=== PATIENT | male | born 1980 | race Caucasian/White ===

== ENCOUNTER 2016-09-24 09:56 | Emergency (ER) | payer BC ==
[~2016-09-24] VITALS: Ht 182.9 cm; Wt 46.8 kg
[~2016-09-24 09:56] MED LIST: BACT800T5 PO; ROBA750T3 PO
[2016-09-24 10:07] VITALS: BP 144/96; PULSE 71; RESP 16; TEMP 97.6; O2SAT 98
[2016-09-24] MEDS ORDERED: ROBA750T PO (11:11)
[2016-09-24] MEDS ORDERED: ZOFR4TAB3 SL (11:11)
[2016-09-24] MEDS ORDERED: IBUP800T23 PO (11:11)
--- NOTE | 2016-09-24 11:35 | PD ---
HPI Chief Complaint: Musculoskeletal Complaint Time Seen by Provider: 11:00 Travel History International Travel<30 days: No Contact w/Intl Traveler<30days: No Traveled to known affect area: No History of Present Illness HPI Patient is a 36-year-old male presenting with right mid back pain. Approximately 2 hours prior to arrival he slipped and fell in the shower. He states he caught himself and did not fall onto the back. He states that it was a twisting motion and he believes he "wrenched" his back. The pain does not radiate. It is worse with movement and touch. He denies any chest pain, shortness of breath, weakness or paresthesias. No bowel or bladder dysfunction. No history of spinal surgeries or traumas. No attempts at palliation. He denies hitting his head and loss of consciousness. Endorses tobacco and marijuana use. Denies ethanol and other illicit drug use. PFSH Past Medical History Medical History: Denies Significant Hx Immunizations Current: Yes Influenza Vaccination: No Past Surgical History Surgical History: No Previous Surgery Social History Alcohol Use: No Tobacco Use: Yes (1PPD) Substance Use: No Allergies-Medications (Allergen,Severity, Reaction): Coded Allergies: Nonsteroidal Anti-Inflammatory Agts (Verified Adverse Reaction, Severe, VOMITING, 09/24/16) Reported Meds & Prescriptions Reported Meds & Active Scripts Active Zofran Odt (Ondansetron Odt) 4 Mg Tab 4 Mg SL Q8HR PRN Robaxin (Methocarbamol) 750 Mg Tab 750 Mg PO QID PRN 2 tabs QID for 2 days, then 1 tab QID thereafter Ibuprofen 800 Mg Tab 800 Mg PO Q8H Review of Systems Except as stated in HPI: all other systems reviewed are Neg Physical Exam Narrative GENERAL: Well-developed and well-nourished adult male in no acute distress. SKIN: Warm and dry. Good turgor without tenting. HEAD: Normocephalic and atraumatic. EYES: PERRL bilaterally, 5mm. EOMI bilaterally. No injection or icterus present. No proptosis. Lids without edema or erythema. ENT: Buccal mucosa pink and moist. Oropharynx free of erythema, tonsillar hypertrophy, masses, swelling, asymmetry and exudates. Uvula midline and airway patent. NECK: Supple, no midline tenderness, crepitus or step-offs. Trachea midline, no JVD. No cervical or facial lymphadenopathy. CARDIOVASCULAR: Regular rate and rhythm without murmurs, rubs, clicks or gallops. Radial and posterior tibial pulses 2+ bilaterally. No pedal edema. RESPIRATORY: Clear to auscultation bilaterally with symmetrical rise and fall, no distress or use of accessory muscles. GASTROINTESTINAL: Non-tender, non-distended. Normal bowel sounds all 4 quadrants. No masses or organomegaly present. MUSCULOSKELETAL: Patient some tenderness to palpation of the thoracic paraspinous musculature on the right. No thoracic or lumbar midline tenderness. No crepitus or step-offs. No edema or discoloration of the back. No gait disturbances. Patient sitting on the side of the bed he drops his phone off the opposite side. I observed him twisting towards his left, extending the back and he reached down off the floor and roll picker the phone without any apparent difficulty. Patient freely moving all four extremities spontaneously. Extremities without clubbing, cyanosis, or edema. No obvious deformities. NEUROLOGIC: CN II-XII grossly intact. Awake and alert. Sensation intact T5-L3 bilaterally. Strength 5/5 in hip flexion, hip extension, knee flexion, knee extension, plantar flexion, dorsiflexion, and great toe flexion and extension bilaterally. Bilateral patellar and Achilles DTRs 2+. Downgoing Babinskis bilaterally. Normal speech. PSYCHIATRIC: Appropriate mood and affect; insight and judgment normal. Data Data Last Documented VS Vital Signs Date Time Temp Pulse Resp B/P Pulse Ox O2 Delivery O2 Flow Rate FiO2 09/24/16 10:07 97.6 71 16 144/96 98 MDM Medical Decision Making Medical Screen Exam Complete: Yes Emergency Medical Condition: Yes Differential Diagnosis Thoracic strain versus spasm versus thoracic vertebral injury highly unlikely Narrative Course Patient is a 36-year-old male with history and physical suggestive of right thoracic paraspinous muscle strain. He has no "red flag" symptoms and is neurovascularly intact. Although he slipped and fell when this occurred he caught himself and did not have any trauma to the back. There is no midline tenderness. He is observed to reach down to the floor and roll picker his phone which he dropped without any apparent difficulty. Patient given prescription for ibuprofen and Robaxin. Recommend homecare measures. Chart lists anti- inflammatories as allergy but patient states that they do sometimes cause nausea , ibuprofen usually does not. He denies any history of ulcer disease. Patient was given Zofran in addition to this.See discharge paperwork for further instructions. The plan was discussed with the patient who acknowledged their understanding and agreement. Reinforced the follow-up with primary care is critically important. Patient instructed on emergent conditions that should prompt return to ED. Diagnosis Primary Impression: Strain of thoracic paraspinal muscles excluding T1 and T2 levels Qualified Code: S29.012A - Strain of thoracic paraspinal muscles excluding T1 and T2 levels, initial encounter Patient Instructions: General Instructions, Thoracic Back Strain (ED) Departure Forms: Tests/Procedures, Work Release Enter return to work date: Sep 27, 2016 Additional Instructions: Rest for 24 hours, then gradually resume normal activity Avoid maneuvers or positions that aggravate the pain Avoid twisting/bending or lifting heavy items Take medications as prescribed Your medications may cause drowsiness. Do not take with alcohol or sedatives. Do not operate a motor vehicle or heavy machinery while on medication. Warm, moist heat applied to painful areas hourly as needed Try to massage and stretch affected muscles after applying heat to speed recovery Follow-up with PCP in 1-2 days Return to ED for any acute worsening of symptoms Med/Other Pt SpecificInfo: Prescription(s) given Scripts Ondansetron Odt (Zofran Odt)4 Mg Tab4 Mg SL Q8HR PRN (Nausea/Vomiting) #12 TAB Prov:Jaspal Lantigua MD 09/24/16 Methocarbamol (Robaxin)750 Mg [id number] Mg PO QID PRN (MUSCLE SPASM) #40 TAB 2 tabs QID for 2 days, then 1 tab QID thereafter Prov:Jaspal Lantigua MD 09/24/16 Ibuprofen 800 Mg [id number] Mg PO Q8H #15 TAB Prov:Jaspal Lantigua MD 09/24/16 Disposition: 01 DISCHARGE HOME Condition: Stable Ashwin Yoon III Sep 24, 2016 11:35
== END 2016-09-24 11:40 | disposition home or self-care (01) ==
LOC: PHEFT 09:56
DX: S29.012A Strain of muscle and tendon of back wall of thorax, initial encounter (principal); W18.2XXA Fall in (into) shower or empty bathtub, initial encounter
CPT/HCPCS: 99283

== ENCOUNTER 2016-11-27 14:06 | Emergency (ER) | payer BC ==
[~2016-11-27] VITALS: Ht 182.9 cm; Wt 121.0 kg
[~2016-11-27 14:06] MED LIST changes: -BACT800T5 PO; +IBUP800T23 PO; +ROBA750T PO; -ROBA750T3 PO; +ZOFR4TAB3 SL
[2016-11-27 14:08] VITALS: BP 145/105; PULSE 84; RESP 14; TEMP 98.1; O2SAT 96
[2016-11-27] MEDS ORDERED: ACETAMINOPHEN/HYDROcodone 325 MG/5 MG TAB PO ONE (14:15)
--- NOTE | 2016-11-27 14:19 | PD ---
HPI Chief Complaint: Injury Time Seen by Provider: 14:16 Travel History International Travel<30 days: No Contact w/Intl Traveler<30days: No Traveled to known affect area: No History of Present Illness HPI 36-year-old male presents to the emergency department for evaluation of right hand injury that occurred yesterday. Patient states that he was throwing a ball to his dog on his front porch and when he threw his hand forward he accidentally hit his third knuckle on a wood plank. States that he's had pain in his second and third knuckles and the dorsal aspect of his hand since this occurred. Pain is aggravated with movement of these fingers and attempting to make a fist. Alleviated with holding it still. Pain is 7 on a scale of 1-10. Denies any numbness or tingling, weakness, fever or chills. He has a history of prior fractures to this hand. He has not taken anything for symptoms so far. No other complaints. PFSH Past Medical History Medical History: Denies Significant Hx Immunizations Current: Yes Social History Alcohol Use: No Tobacco Use: Yes (1PPD) Substance Use: No Allergies-Medications (Allergen,Severity, Reaction): Coded Allergies: Nonsteroidal Anti-Inflammatory Agts (Verified Adverse Reaction, Severe, VOMITING, 11/27/16) Reported Meds & Prescriptions Reported Meds & Active Scripts Active No Active Prescriptions or Reported Medications Review of Systems Except as stated in HPI: all other systems reviewed are Neg Physical Exam Narrative GENERAL: Well-nourished and well-developed pleasant male patient in no acute distress who is nontoxic appearing. SKIN: Warm and dry. HEAD: Normocephalic and atraumatic. EYES: No injection, drainage, or hyphema noted. PERRLA. EOMI. ENT: No nasal drainage noted. Oropharynx is clear. NECK: Supple and the trachea is midline. CARDIOVASCULAR: Regular rate and rhythm. RESPIRATORY: Breath sounds are equal bilaterally with no accessory muscle use, wheezing, rhonchi, or crackles. EXTREMITY: Right hand with swelling over third MCP with tenderness to palpation. Tenderness to palpation over second and third metacarpal bones. Full range of motion in all joints however pain is elicited with movement of the second and third MCP joints. Normal opposition of thumb. Distal extremity neurovascularly intact with intact two point discrimination. Radial pulses are 2+ bilaterally. NEUROLOGICAL: Awake, alert, and oriented. Normal speech and gait. Cranial nerves are grossly intact. Data Data Last Documented VS Vital Signs Date Time Temp Pulse Resp B/P Pulse Ox O2 Delivery O2 Flow Rate FiO2 11/27/16 14:31 84 16 96 Room Air 11/27/16 14:08 98.1 145/105 Orders Hand, Complete ([id number]) (11/27/16 14:15) Acetamin-Hydrocod 325-5 Mg ([place] 5-325 (11/27/16 14:15) MDM Medical Decision Making Medical Screen Exam Complete: Yes Emergency Medical Condition: Yes Differential Diagnosis Contusion versus fracture versus sprain Narrative Course 36-year-old male presents to the emergency department for evaluation of right hand injury that occurred yesterday when he accidentally his hand on a wood plank. Patient is afebrile, vital signs are stable. Right hand is neurovascularly intact. X-ray imaging has been ordered and is pending. X-ray of the right hand is negative for any acute abnormalities. This is a contusion of the right hand. Discussed supportive care with the patient. Advised follow-up with his PCP as needed. Patient verbalizes understanding and agreement with treatment plan. Diagnosis Primary Impression: Contusion of right hand Qualified Code: S60.221A - Contusion of right hand, initial encounter Referrals: Primary Care Physician Patient Instructions: Contusion in Adults (ED), General Instructions Additional Instructions: Apply ice for 20 minutes on, 20 minutes off. Tylenol as directed on the box as needed for pain. Follow-up with your Primary Care Physician. Return to the ED for any acute worsening of symptoms. Med/Other Pt SpecificInfo: No Change to Meds Scripts No Active Prescriptions or Reported Meds Disposition: 01 DISCHARGE HOME Condition: Stable No Jay Nov 27, 2016 14:19
--- NOTE | 2016-11-27 14:48 | RADHPO ---
EXAM DATE/TIME: 11/27/2016 14:18 [facility] COMPARISON: HAND RIGHT COMPLETE ([id number]), [birth year] 10, 2005, 9:22. INDICATIONS : Right hand pain after hitting hand on wall while playing with dog yesterday. MEDICAL HISTORY : Smoker. Previous fracture. SURGICAL HISTORY : None. ENCOUNTER: Initial ACUITY: 2 days PAIN SCORE: 7/10 LOCATION: Right 3rd digit. FINDINGS: Three view examination of the right hand demonstrates no soft tissue swelling, dislocation, or fractu re. The carpal bones appear intact. The interphalangeal and metacarpophalangeal joints are intact. Bony mineralization is normal. CONCLUSION: Normal examination for a patient of this age. Jorge A Corral MD FACR on November 27, 2016 at 14:46 Board Certified Radiologist. This report was verified electronically.
== END 2016-11-27 14:58 | disposition home or self-care (01) ==
LOC: PHEFT 14:06
DX: S60.221A Contusion of right hand, initial encounter (principal); F17.210 Nicotine dependence, cigarettes, uncomplicated; W22.09XA Striking against other stationary object, initial encounter; Y93.K9 Activity, other involving animal care; Y92.9 Unspecified place or not applicable; Y99.8 Other external cause status
CPT/HCPCS: 73130; 99283